=== PATIENT | male | born 1970 | race African-American/Black ===

== ENCOUNTER 2016-12-10 11:34 | Day surgery (SDC) | payer OTHER ==
[~2016-12-10] VITALS: Ht 180.3 cm; Wt 110.0 kg
[~2016-12-10 11:34] MED LIST: Lactated Ringer's 1,000 ML IV ONE; Sodium Chloride LOK Flush 10 mL Syringe IV PRN; fentaNYL-PF 50 mCg/mL 2 mL Inj IVPUSH PRN
[2016-12-10] MEDS ORDERED: Propofol 10,000 mCg/mL 20 mL Inj ONE (11:35)
[2016-12-10 11:59] VITALS: BP 137/81; PULSE 58; RESP 16; O2SAT 96
[2016-12-10] MEDS ORDERED: SOTA80TA PO (11:59)
[2016-12-10] MEDS ORDERED: LISI-571 PO (11:59)
[2016-12-10] MEDS ORDERED: MULT-666 PO (11:59)
[2016-12-10] MEDS ORDERED: HYDR25TA4 PO (11:59)
[2016-12-10] MEDS ORDERED: ATRV10T PO (11:59)
[2016-12-10] MEDS ORDERED: EZET10TA27 PO (11:59)
--- NOTE | 2016-12-10 12:21 | PCM.HPANE ---
Patient Data Surgeon Admitting Provider: Attending Provider:Jose Ventura MD Primary Care Physician:Lewis Diana MD Other Provider:Nargis Rosenthalingham Anesthesia Reason for Visit Rectal Bleeding Ht/WT & BMI Height (Feet): 5 Height (Inches): 11 Weight (Kilograms): 110 Body Mass Index 33.00 Allergies Coded Allergies: No Known Drug Allergies (Verified Allergy, Unknown, 12/10/16) Past Anesthesia History Anesthesia History: Denies:: Anesthesia Reactions, Fam Anesthesia Reaction, Fam Malignant Hypertherm, Malignant Hyperthermia Diabetes History Hx Diabetes?: No MRSA MRSA: No Medications Home Meds Incl Beta Erlinda: Yes Date Beta Erlinda Taken: Dec 10, 2016 Time Beta Erlinda Taken: 0800 Reported Medications Multivitamin (Once Daily)1 Each Tablet1 Each PO DAILY 12/10/16 Atorvastatin (Lipitor)10 Mg Tab10 Mg PO DAILY Ref 0 12/10/16 Ezetimibe 10 Mg [id number] Mg PO DAILY 12/10/16 Sotalol HCl (Sotalol)80 Mg Qfatff55 Mg PO BID 30 Days Ref 0 12/10/16 Hydrochlorothiazide 25 Mg [id number] Mg PO DAILY 30 Days Ref 0 12/10/16 Lisinopril 5 Mg Tablet5 Mg PO DAILY #30 TABLET Ref 0 12/10/16 History History of ENT Problems?: No HEENT History: Denies:: Abnormal Airway Cataracts Difficult Intubation Dysphagia Glaucoma Hearing Problem Sinus Problem TMJ Denture Type: None Teeth Condition: Within Normal Limits Hx of Heart Problems?: Yes Cardiovascular History: Positive for:: Hypertension (HYPERLIPIDEMIA) Denies:: AICD Pacemaker Valvular Heart Disease Other History/Comments PSVT s/p ablation in 2006, with no further incidences. cardiac ROS negative Hx of Respiratory Problem?: No Respiratory History: Positive for:: Asthma (ALLERGIC TO ANIMAL DANDER) Hx Neurologic Problems?: No Neurological History: Denies:: CVA Hx of GI Problems?: Yes Other History/Comment Blood in stool Hx of Problems?: No Hx Musculoskeletal Problems?: No Psycho Social History: Denies:: Anxiety Hx Depression Hx Surgeries?: Yes (HERNIA REPAIR, 1 UMBILICAL, 1 INGUINAL. ABLATION FOR SVT, ELBOW SURGERY) Hx Any Other Health Problems?: No Hx Diabetes: No Hx Alcohol Use: Yes (ONE DRINK PER DAY) Stop/Bang Treated for Sleep Apnea?: Yes Do You Have a CPAP Machine?: Yes Risk Assessment Category Category 1A: Patient has history of documented sleep apnea, and HAS NOT received any narcotic, sedative or anesthesia administration during this stay. Category 1B: Patient has history of documented sleep apnea, and HAS received any narcotic , sedative or anesthesia administration during this stay Category 2: Patient has SUSPECTED Obstructive Sleep Apnea, and HAS received any narcotic , sedative or anesthesia administration during this stay. Category 3: Patient has SUSPECTED Obstructive Sleep Apnea and HAS NOT received narcotic, sedative or anesthesia administration during this stay. Category 4: Outpatient in Procedural Areas with known sleep apnea or who screen positive for High Risk via the STOP/BANG questionnaire. Exam Exam Vital Signs Vital Signs Date Time Temp Pulse Resp B/P Pulse Ox O2 Delivery O2 Flow Rate FiO2 12/10/16 11:59 58 16 137/81 96 Room Air General Appearance: Alert, Oriented X3, Cooperative HEENT/AIRWAY: MP 2 Lungs: Clear to Auscultation Heart: Exam Unremarkable Plan Impression Patient chart reviewed, patient interviewed and anesthestic plan with risks, benefits, and alternatives discussed, and informed consent obtained. Jose Bowman MD Dec 10, 2016 12:21
[2016-12-10 12:48] VITALS: BP 123/74; PULSE 56; RESP 14; O2SAT 97
[2016-12-10 12:57] VITALS: BP 118/68; PULSE 57; RESP 14; O2SAT 98
--- NOTE | 2016-12-10 13:23 | ENDO ---
[address] [address] ENDOSCOPY PROCEDURE PATIENT: DEISY FERNANDES : 1970 MR#: [id number] ADMIT: 12/10/2016 JOB ID: [id number] DATE: 12/10/2016 TYPE OF OPERATION: Colonoscopy. PREOPERATIVE DIAGNOSIS(ES): Rectal bleeding. POSTOP DIAGNOSIS: Small internal hemorrhoids. ANESTHESIA: Monitored anesthesia care. COMPLICATION: None. BLOOD LOSS: Minimal. DESCRIPTION OF PROCEDURE: After risks and benefits were explained to the patient, informed consent was obtained. After anesthesia administered, colonoscope was then inserted from the rectum to the cecum. Mucosa carefully examined. Prep of the patient was excellent. After the procedure was done, the scope withdrawn and procedure terminated. FINDINGS: Upon inspection of the anus, no masses, hemorrhoids, ulcers, or fissures that were seen. Throughout the entire examination, there were no polyps, masses, or lesions. Retroflexion showed small internal hemorrhoids. IMPRESSION: Small internal hemorrhoids. RECOMMENDATIONS: 1. Stool softener as needed. 2. Repeat colonoscopy 10 years for colorectal cancer screening. 3. Followup in GI clinic as needed.
== END 2016-12-10 23:59 | disposition home or self-care (01) ==
LOC: END 11:34
PROVIDERS: ATTEND Internal Medicine Gastroenterology
DX: K62.5 Hemorrhage of anus and rectum (principal); K64.8 Other hemorrhoids; I10 Essential (primary) hypertension; I48.91 Unspecified atrial fibrillation; G47.33 Obstructive sleep apnea (adult) (pediatric); I47.1 Supraventricular tachycardia; Z79.82 Long term (current) use of aspirin
CPT/HCPCS: 45378; J7120